=== PATIENT | female | born 1975 ===

== ENCOUNTER 2024-09-19 19:31 | Emergency (ER) | payer OTHER, SELFPAY ==
[2024-09-19 19:33] VITALS: BP 138/85
[2024-09-19 19:56] VITALS: BP 123/87; BP 129/77; BP 144/48; PULSE 75; PULSE 76; PULSE 81
--- NOTE | 2024-09-19 19:56 | ED.GENMED ---
History of Present Illness
General
Chief Complaint: Abnormal Lab Value
Source: patient
Exam Limitations: none
Time Seen by Provider: 09/19/24 19:40
Nursing documentation reviewed up to this point in time: agreed with
History of Present Illness
History of Present Illness:
Patient is a 49-year-old healthy female who presents to the emergency department from urgent care for evaluation after abnormal EKG. Patient reports that earlier today around 1 PM she was blow drying her hair when she started to feel unwell and
reports feelings of lightheadedness, nausea, and mild shortness of breath. She then took her blood pressure and it was very elevated at home reporting readings of systolics in the 180s. She reports that she felt very lightheaded as if she was
going to pass out. Symptoms persisted prompting visit to the urgent care where she had a 'abnormal EKG 'and was referred to the emergency department for further testing.
Patient denies any exertional component to any of the symptoms. She denies any associated chest pain, headache, visual changes, severe back pain, numbness/tingling or unilateral weakness in extremities.
She reports no past history of hypertension. She denies any recent travel or recent surgeries. No pain or swelling in lower extremities. No exogenous hormone use.
At this time�patient states her symptoms have completely resolved and she has no complaints.
Review of Systems
Review of Systems
Allergies reviewed?: Yes
All Other Systems: ROS reviewed and negative except as documented in HPI and ROS
Phy Exam
Physical Exam
Physical Exam:
Vitals: Mildly hypertensive, otherwise vital signs stable. Afebrile
General: Patient is well appearing, no acute distress. Nontoxic appearing
Skin: Warm and dry, no rashes or lesions
Head: Normocephalic, atraumatic
Eyes: Sclera nonicteric. EOMs intact. No nystagmus.
Throat: Protecting airway
Neck: Normal ROM, no cervical spine tenderness, no meningismus. No JVD
Cardiac: Regular rate and rhythm, no murmurs. 2+ palpable radial pulses bilaterally
Pulm: Normal respiratory effort, no wheezes, rales, rhonchi heard on exam
.
Abdomen: Abdomen soft nontender.
Extremities: No evidence of cyanosis or edema. Negative Homans' sign bilaterally with palpable DP pulses
Neuro: AAOx3. No focal neurologic deficits. Steady gait.
Psychiatric: Normal affect.
Course
Orders/Labs/Results
Orders:
Orders
09/19/24 19:39
ECG [Electrocardiogram (*1)] Urgent
Reason for Study: Other
Other Reason for Exam: abnormal ecg findings
EKG- Treatment ONCE
09/19/24 19:56
Orthostatic VS- Treatment ONCE
0.9% Sodium Chloride 1000 ml [Nss] 1,000 ml IV BOLUS
09/19/24 19:57
CR Chest - 2 Views Urgent
Comment:
Reason For Exam: sob
09/19/24 20:08
Complete Blood Count/With Diff Urgent
Comprehensive Metabolic Panel Urgent
Troponin I Urgent
Abnormal Lab Results
09/19/24
20:08
Hgb 11.3 L g/dL
(12.0-16.0)
Hct 35.2 L %
(37.0-47.0)
MCV 80.4 L fL
(81.0-99.0)
MCH 25.8 L pg
(27.0-31.0)
MCHC 32.1 L g/dL
(33.0-37.0)
RDW 14.6 H %
(11.5-14.5)
MPV 10.6 H fL
(7.4-10.4)
Absolute Neuts (auto) 7.2 H 10^3/uL
(1.4-6.5)
Absolute Monos (auto) 0.8 H 10^3/uL
(0.1-0.6)
Chloride 109 H mmol/L
(98-107)
Glucose 133 H mg/dl
(70-99)
09/19/24 20:08
09/19/24 20:08
Vital Signs
Initial and Last Documented VS:
Initial Vital Signs
Temp Pulse Resp BP Pulse Ox
98 F 85 20 138/85 96
09/19/24 19:33 09/19/24 19:33 09/19/24 19:33 09/19/24 19:33 09/19/24 19:33
Last Documented Vital Signs
Temp Pulse Resp BP Pulse Ox
98 F 72 19 124/75 99
09/19/24 19:33 09/19/24 21:30 09/19/24 21:30 09/19/24 21:00 09/19/24 21:30
MDM/Problems Addressed
Differential Diagnosis Includes:
Not limited to: Acute dehydration, cardiac arrhythmia, orthostatic hypotension, acute coronary syndrome, viral illness, etc.
MDM/Problems Addressed:
49-year-old female presenting after episode of elevated blood pressure at home associated with lightheadedness and very mild shortness of breath. No exertional or pleuritic symptoms. Patient sent from urgent care given abnormal EKG findings.
Patient denies any severe headache, chest pain, back pain, or other neurologic symptoms. By my assessment�patient's symptoms have improved and she feels much better. On arrival she is mildly hypertensive, otherwise with no abnormalities. Physical
exam as above. Patient well-appearing, no apparent distress. Cardio/pulmonary assessment unremarkable. She is neurologically intact without any focal deficits. An EKG was obtained in triage which reveals normal sinus rhythm with some T wave
flattening noted in leads V3, V4, V5. Will give IV fluids, check basic labs, troponin, and chest x-ray.
Update: Labs reviewed no clinically significant abnormalities. Troponin undetectable. Chest x-ray without acute findings. On reassessment�patient symptoms have improved completely and she feels back to her baseline. Unknown exact etiology of
symptoms earlier although considerations include possible dehydration or viral illness. T wave flattening noted on EKG however troponin negative and patient never had any chest pain�do not suspect acute coronary syndrome. Feel stable for discharge
home with strict return precautions, primary care follow-up, and cardiology follow-up. Patient comfortable with plan.
Chronic conditions affecting care:
N/A
Acute Exacerbation and/or Progression of Chronic Illness:
N/A
*Radiology
Radiology exam reviewed: preliminary read by ED provider (Chest x-ray reviewed by me-no acute abnormalities) and radiology read reviewed
*Pulse Oximetry
SaO2: 96
Oxygen Mode of Delivery: Room air
Patient hypoxic: no
*EKG
Interpreted by ED Provider?: Yes
Interpretation: abnormal
Comparison EKG: no changes
Heart Rate: 79
Rate: normal
Rhythm: sinus
[place]: left axis deviation
Interval: normal QT interval
QRS Pattern: normal QRS
Ischemia: non-specific ST changes (T wave flattening noted in V3, V4, V5)
*[employer] Interpretation
Rate: normal
Interpretation: normal
Heart Rate: 70
Rhythm: sinus
*Critical Care Note
Total Time (30-74mins, 75-104mins- exclusive of procedures): Not Applicable
Data Reviewed
Review of Other/Old Records Reveals: Testing (EKG obtained at urgent care without significant changes from emergency department EKG)
ED Attending Note
-
Portions of this chart may have been created with voice recognition software.� Occasional wrong word or��sound alike� substitutions may have occurred due to the inherent limitations of voice recognition software.
Discharge Plan
Departure
Patient Disposition: Home (Routine Discharge)
Date of Disposition: 09/19/24
Time of Disposition: 21:38
Patient with high blood pressure during this ER visit?: Yes
Discharge Problem:
Near syncope, Hypertension
Instructions: Dehydration, Adult (DC), Near Fainting (DC), BLOOD PRESSURE
Referrals:
Riky Richards MD [Active, Cardiology] - Next open appointment
UNKNOWN - PT DOES,NOT KNOW [Family Provider]
Activity Restrictions/Additional Instructions:
RETURN TO THE EMERGENCY DEPARTMENT WITH ANY CHEST PAIN, SHORTNESS OF BREATH/DIFFICULTY BREATHING, PERSISTENT LIGHTHEADEDNESS/DIZZINESS, EPISODES OF FAINTING, SIGNS OF SEVERE DEHYDRATION, WORSENING IN CURRENT SYMPTOMS, OR ANY OTHER CONCERNS
- As discussed�there was a mild abnormality of your EKG. However�your cardiac enzymes are negative today. You should follow-up with cardiology for further evaluation/management
- Your lab work showed no acute abnormalities. Your chest x-ray was normal. You were given a liter of IV fluids with improvement of your symptoms.
- It is important stay well-hydrated and get plenty of rest. Take your blood pressure once a day.
- Follow-up with your primary care/cardiology for further evaluation/management.
Monitor your symptoms closely and return to the emergency department with any acute worsening/new symptoms or any other concerns
Interventions
Interventions:
*Risk Screen - Suicide Last Done: 09/19/24 20:01
*General Assessment Last Done: 09/19/24 19:33
*Neglect/Abuse Screening Last Done: 09/19/24 20:01
*ED- Fall Risk Assessment Last Done: 09/19/24 20:01
*ED COVID-19 Vaccine History Last Done: 09/19/24 20:01
*Nursing Disposition Last Done: 09/19/24 22:04
Discharge Date and Time
Discharge Date/Time: 09/19/24 22:13
Print Language: SINHALA
[2024-09-19 20:00] VITALS: BP 129/77; BMI 34.9
[2024-09-19 20:01] VITALS: BP 144/48
[2024-09-19 20:03] VITALS: BP 123/87
[2024-09-19 20:19] LABS: % Basophils 0.6 % (0-2); % Eosinophils 3.1 % (0-6); % Immature Granulocytes 0.4 % (0-0.5); % Lymphocytes 21.9 % (20.5-51.1); % Monocytes 7.1 % (1.7-9.3); % Neutrophils 66.9 % (42.2-75.2); Absolute Basophils 0.1 10^3/uL (0-0.2); Absolute Eosinophils 0.3 10^3/uL (0-0.7); Absolute Lymphocytes 2.4 10^3/uL (1.2-3.4); Absolute Monocytes 0.8 10^3/uL (0.1-0.6); Absolute Neutrophils 7.2 10^3/uL (1.4-6.5); Hematocrit 35.2 % (37.0-47.0); Hemoglobin 11.3 g/dL (12.0-16.0); Mean Corp Hgb Conc. 32.1 g/dL (33.0-37.0); Mean Corpuscular Hgb 25.8 pg (27.0-31.0); Mean Corpuscular Volume 80.4 fL (81.0-99.0); Mean Platelet Volume 10.6 fL (7.4-10.4); Nucleated Red Blood Cells % 0 %; Platelet Count 373 10^3/uL (130-400); Red Blood Cell Count 4.38 10^6/uL (4.20-5.40); Red Cell Dist. Width 14.6 % (11.5-14.5); White Blood Cell Count 10.8 10^3/uL (4.8-10.8)
[2024-09-19] MEDS: NSS 1000 IV (20:29)
[2024-09-19 20:40] LABS: ALT (SGPT) 22 U/L (0-35); AST (SGOT) 20 U/L (14-36); Albumin 4.4 g/dl (3.5-5.0); Alkaline Phosphatase 83 U/L (38-126); Blood Urea Nitrogen 12 mg/dl (7-17); Carbon Dioxide 24 mmol/L (22-30); Chloride 109 mmol/L (98-107); Estimated Creatinine Clearance 98 ml/min; Glucose 133 mg/dl (70-99); Potassium 4.1 mmol/L (3.5-5.1); Sodium 140 mmol/L (135-145); Total Bilirubin 0.3 mg/dl (0.2-1.3); Total Protein 7.2 g/dl (6.3-8.2); eGFR > 60.00
[2024-09-19 20:53] LABS: Troponin I < 0.012 ng/ml
[2024-09-19 21:00] VITALS: BP 124/75
== END 2024-09-19 22:13 | disposition home or self-care (01) ==
LOC: EMR 19:31
PROVIDERS: Physician Assistant; EMERGENCY PHYSICIAN Emergency Medicine
DX: R55 Syncope and collapse (principal); I10 Essential (primary) hypertension; R94.31 Abnormal electrocardiogram [ECG] [EKG]
CPT/HCPCS: 96360; 99285; 71046; 80053; 84484; 85025; 93005